=== PATIENT | female | born 1980 | race Caucasian/White ===

== ENCOUNTER 2017-01-09 12:24 | Inpatient (IN) ==
--- NOTE | 2017-01-09 13:32 | Emergency Department Note ---
Disposition Clinical Impression: Suicidal ideation, Chronic schizophrenia Disposition: Admitted As Inpatient Condition: Good Forms: ED Satisfaction Letter Time of Disposition: 18:35 Psych HPI - General Chief Complaint: ED Psychiatric Symptoms Stated Complaint: Psychiatric Complaints/SI Time Seen by Provider: 01/09/17 13:08 Source: patient Mode of arrival: EMS Limitations: no limitations Nursing Notes Reviewed: Yes Vital Signs Reviewed: Yes - History of Present Illness HPI Narrative: Patient is a 36-year-old female with a history of schizophrenia and he is affective disorder who presents with chief complaint of suicidal ideation. Patient is with [facility] systems [facility] who is providing most of the history. States the patient's has had psychiatric issues in the past but over the last 2 days have been extremely agitated and very physical. She has been hearing increasing voices in her head that are telling her to kill herself. Patient has had prior suicidal overdose attempts and has been admitted to prior psychiatric facilities. [facility] after she apparently overdosed on insulin, unknown whether or not this was intentional or not. Patient currently denying any nausea, vomiting, fever or chills. No chest pain , difficulty breathing, abdominal pain, problems with urination or bowel movements. No homicidal ideation. Pt complaint: suicidal ideation, medical clearance request If medical clearance, reason: psychiatric condition Onset (ago): day(s) Duration: getting worse History of similar episodes: Yes Improves with: none Worsens with: none Alleged intoxication: No Associated Psychiatric Symptoms: suicidal ideation Associated symptoms: Reports: denies other symptoms. Denies: shortness of breath, nausea, vomiting Self harm or harm to others: admits thoughts of self harm - Related Data Allergies Allergy/AdvReac Type Severity Reaction Status Date / Time divalproex sodium Allergy See Verified 01/09/17 13:41 [From Depakote] Comments haloperidol [From Haldol] Allergy See Verified 01/09/17 13:41 Comments ibuprofen [From Motrin] Allergy See Verified 01/09/17 13:41 Comments dairy products Allergy See Uncoded 01/09/17 13:41 Comments All systems ED: reviewed and negative except as stated. Past Medical History - Past Medical History Attestation: Yes The following information was validated with the patient. Source: patient Medical history: Reports: diabetes, hyperlipidemia Psychiatric history: Reports: anxiety, bipolar, depression, schizophrenia - Social History Smoking Status: Never smoker Smokeless Tobacco Status: No Alcohol use: Reports: none Drug use: Reports: none Physical Exam CONSTITUTIONAL: Alert and oriented X3, well-nourished, well appearing, in no apparent distress HEAD: Normocephalic; atraumatic. EYES: PERRL, no scleral icterus. NOSE: The nose is normal in appearance without rhinorrhea RESP: Normal chest excursion with respiration; breath sounds clear and equal bilaterally; no wheezes, rhonchi, or rales CARD: Regular rhythm, without murmurs, rub or gallop ABD: Non-distended; non-tender, soft,without rigidity, rebound or guarding SKIN: Normal for age and race; warm and dry; no apparent lesions - General Limitations: no limitations General appearance: alert, in no apparent distress Course Course Narrative: Patient seen and examined. Hearing voices that are telling her to kill herself. We will medically clear and then talk with psychiatry. - Reevaluation(s) Reevaluation #1: Patient medically cleared for psychiatric evaluation. Time: 15:00 Reevaluation #2: Spoke with psychiatry, they will admit to 1A. Time: 18:35 Vital Signs Temperature 98.3 F 01/09/17 12:56 Pulse Rate 83 01/09/17 12:56 Respiratory Rate 16 01/09/17 12:56 Blood Pressure 125/73 01/09/17 12:56 O2 Sat by Pulse Oximetry 91 01/09/17 12:56 Temperature 98.3 F 01/09/17 12:56 Pulse Rate 85 01/09/17 18:35 Respiratory Rate 16 01/09/17 18:35 Blood Pressure 120/76 01/09/17 18:35 O2 Sat by Pulse Oximetry 96 01/09/17 18:35 Oxygen Delivery Oxygen Delivery Room Air Psych - Medical Records Medical records reviewed: Yes I reviewed the patient's medical records. - Lab Data Lab results reviewed: Yes I reviewed the patient's lab results. Result diagrams: 01/09/17 13:40 01/09/17 13:40 Lab Results 01/09/17 01/09/17 01/09/17 Range/Units 13:22 13:22 13:22 WBC (4.3-11.1) K/mcL RBC (3.82-4.97) M/mcL Hgb (11.5-15.4) g/dL Hct (35.3-44.9) % MCV (83.0-100.0) fL MCH (28.0-33.3) pg MCHC (31.6-35.5) g/dL RDW (11.5-14.5) % Plt Count (140-400) K/mcL MPV (9.4-12.4) fL Immature Gran % (0-4) % Seg Neutrophils % % Lymphocytes % % Monocytes % % Eosinophils % % Basophils % % Neutrophils # (1.6-8.9) K/mcL Lymphocytes # (0.6-4.6) K/mcL Monocytes # (0.0-1.3) K/mcL Eosinophils # (0.0-0.6) K/mcL Basophils # (0.0-0.2) K/mcL Sodium (136-145) mEq/L Potassium (3.5-4.5) mEq/L Chloride (98-109) mEq/L Carbon Dioxide (19-29) mEq/L BUN (7-20) mg/dL Creatinine (0.57-1.11) mg/dL Est GFR ( Amer) (> 60) Est GFR (Non-Af Amer) (> 60) BUN/Creatinine Ratio (6-26) Glucose (70-99) mg/dL Calculated Osmolality (280-300) Calcium (8.6-10.8) mg/dL Urine Color Yellow (Yellow) Urine Clarity Clear (Clear) Urine pH 7.0 (5.0-8.0) pH Units Ur Specific [place] 1.011 (1.010-1.025) Urine Protein Negative (Neg-Trace) mg/dL Urine Glucose (UA) Normal (Normal) mg/dL Urine Ketones Negative (Negative) mg/dL Urine Blood Trace H (Negative) Urine Nitrite Negative (Negative) Urine Bilirubin Negative (Negative) Urine Urobilinogen Normal (Normal) mg/dL Ur Leukocyte Esterase Negative (Negative) Urine Microscopic RBC 0-3 (0-3) per hpf Urine Microscopic WBC 5-15 H (0-3) per hpf Ur Squamous Epith Cells Many H (None-Few) per lpf Urine Bacteria Few (None-Few) per hpf Hyaline Casts None Seen (None-Few) per lpf Urine Test Negative (Negative) Salicylates (15-30) mg/dL Urine Opiates Screen Negative (Lkfqhp=677) ng/mL Acetaminophen (10-30) mcg/mL Ur Barbiturates Screen Negative (Chwmjt=705) ng/mL Ur Phencyclidine Scrn Negative (Cutoff=25) ng/mL Ur Amphetamines Screen Negative (Dnfakg=5341) ng/mL U Benzodiazepines Scrn Negative (Bfxefr=743) ng/mL Urine Cocaine Screen Negative (Cutoff= 300) ng/mL U Marijuana (THC) Screen Negative (Cutoff = 50) ng/mL Ethyl Alcohol (0-10) mg/dL 01/09/17 01/09/17 Range/Units 13:40 13:40 WBC 10.4 (4.3-11.1) K/mcL RBC 3.74 L (3.82-4.97) M/mcL Hgb 10.8 L (11.5-15.4) g/dL Hct 34.0 L (35.3-44.9) % MCV 90.9 (83.0-100.0) fL MCH 28.9 (28.0-33.3) pg MCHC 31.8 (31.6-35.5) g/dL RDW 15.9 H (11.5-14.5) % Plt Count 361 (140-400) K/mcL MPV 9.7 (9.4-12.4) fL Immature Gran % 0.6 (0-4) % Seg Neutrophils % 59.6 % Lymphocytes % 23.4 % Monocytes % 9.7 % Eosinophils % 6.0 % Basophils % 0.7 % Neutrophils # 6.2 (1.6-8.9) K/mcL Lymphocytes # 2.4 (0.6-4.6) K/mcL Monocytes # 1.0 (0.0-1.3) K/mcL Eosinophils # 0.6 (0.0-0.6) K/mcL Basophils # 0.1 (0.0-0.2) K/mcL Sodium 141 (136-145) mEq/L Potassium 5.2 H (3.5-4.5) mEq/L Chloride 113 H (98-109) mEq/L Carbon Dioxide 18 L (19-29) mEq/L BUN 12 (7-20) mg/dL Creatinine 0.81 (0.57-1.11) mg/dL Est GFR ( Amer) > 60 (> 60) Est GFR (Non-Af Amer) > 60 (> 60) BUN/Creatinine Ratio 15 (6-26) Glucose 112 H (70-99) mg/dL Calculated Osmolality 293 (280-300) Calcium 9.4 (8.6-10.8) mg/dL Urine Color (Yellow) Urine Clarity (Clear) Urine pH (5.0-8.0) pH Units Ur Specific [place] (1.010-1.025) Urine Protein (Neg-Trace) mg/dL Urine Glucose (UA) (Normal) mg/dL Urine Ketones (Negative) mg/dL Urine Blood (Negative) Urine Nitrite (Negative) Urine Bilirubin (Negative) Urine Urobilinogen (Normal) mg/dL Ur Leukocyte Esterase (Negative) Urine Microscopic RBC (0-3) per hpf Urine Microscopic WBC (0-3) per hpf Ur Squamous Epith Cells (None-Few) per lpf Urine Bacteria (None-Few) per hpf Hyaline Casts (None-Few) per lpf Urine Test (Negative) Salicylates < 5.0 L (15-30) mg/dL Urine Opiates Screen (Mivith=702) ng/mL Acetaminophen < 1.0 L (10-30) mcg/mL Ur Barbiturates Screen (Oyktfk=178) ng/mL Ur Phencyclidine Scrn (Cutoff=25) ng/mL Ur Amphetamines Screen (Asrvar=6069) ng/mL U Benzodiazepines Scrn (Yggfzv=955) ng/mL Urine Cocaine Screen (Cutoff= 300) ng/mL U Marijuana (THC) Screen (Cutoff = 50) ng/mL Ethyl Alcohol < 10 (0-10) mg/dL Psychiatric Medical Clearance - Medical Clearance Checklist Does the patient have a NEW psychiatric condition?: Yes Any abnormalities indicating possible medical illness?: No Any history of medical issues?: Yes Medical History: Suicidal ideation (Acute) Chronic schizophrenia (Acute) No Social History Section defined Any abnormal vital signs prior to transfer?: No Current Vitals: Last Vital Signs Temp 98.3 F 01/09/17 12:56 Pulse 85 01/09/17 18:35 Resp 16 01/09/17 18:35 BP 120/76 01/09/17 18:35 Pulse Ox 96 01/09/17 18:35 Is the patient intoxicated or cognitively impaired?: No Psychiatric Lab Panel: Drug Levels and Toxicity 11/06/17 11/06/17 13:22 13:40 Urine Opiates Screen Negative Acetaminophen < 1.0 L Ur Barbiturates Screen Negative Ur Phencyclidine Scrn Negative Ur Amphetamines Screen Negative U Benzodiazepines Scrn Negative Urine Cocaine Screen Negative U Marijuana (THC) Screen Negative Ethyl Alcohol < 10 Any abnormalities on the physical exam?: No Any abnormal labs?: No Abnormal Labs: Abnormal lab results RBC 3.74 M/mcL (3.82-4.97) L 01/09/17 13:40 Hgb 10.8 g/dL (11.5-15.4) L 01/09/17 13:40 Hct 34.0 % (35.3-44.9) L 01/09/17 13:40 RDW 15.9 % (11.5-14.5) H 01/09/17 13:40 Potassium 5.2 mEq/L (3.5-4.5) H 01/09/17 13:40 Chloride 113 mEq/L (98-109) H 01/09/17 13:40 Carbon Dioxide 18 mEq/L (19-29) L 01/09/17 13:40 Glucose 112 mg/dL (70-99) H 01/09/17 13:40 Urine Blood Trace (Negative) H 01/09/17 13:22 Urine Microscopic WBC 5-15 per hpf (0-3) H 01/09/17 13:22 Ur Squamous Epith Cells Many per lpf (None-Few) H 01/09/17 13:22 Salicylates < 5.0 mg/dL (15-30) L 01/09/17 13:40 Acetaminophen < 1.0 mcg/mL (10-30) L 01/09/17 13:40 Does the patient require durable medical equiptment?: No Is the patient ambulatory?: Yes Is the patient a fall risk?: No Has the patient been medically cleared?: Yes Any acute medical condition require Tx prior to transfer?: No Attestation Statement - Attestation Attestation: I, Misael Connell DO, examined this patient [id number] and my medical decision-making was reviewed with Dr. Deisy Hill, Resident Physician. I agree with the documented findings, disposition and treatment plan as described except to the extent set forth below. Please see my progress notes for details. 36-year-old female sent to our facility for psychiatric evaluation. She is having worsening of her schizophrenia bipolar. Does describe some suicidal ideation at this point. The facility that she sustained currently he was concerned and wanted to have her evaluated for possible state placement. The psychiatric team's consult recommended coming to the emergency room for evaluation. Patient is currently denying any other symptoms. Psychiatric evaluation be completed. No new medical issues noted. Disposition be determined once workup is completed and psychiatric team is evaluating. See detailed documentation of physical exam, medical intervention, medical decision- making and disposition physician's note [id number] Patient will be accepted to the psychiatric team for evaluation.
[2017-01-09 13:35] LABS: Bilirubin,Urine Negative (Negative); Blood,Urine Trace (Negative); Clarity,Urine Clear (Clear); Color,Urine Yellow (Yellow); Glucose,Urine (UA) Normal (Normal); Ketones,Urine Negative (Negative); Leukocyte Esterase,Urine Negative (Negative); Nitrite,Urine Negative (Negative); Protein,Urine Negative (Neg-Trace); Specific Gravity,Urine 1.011 (1.010-1.025); Urobilinogen,Urine Normal (Normal)
[2017-01-09 13:37] LABS: Bacteria,Urine Few per hpf (None-Few); Hyaline Casts,Urine None Seen per lpf (None-Few); Squamous Epithelial Cell,Urine Many per lpf (None-Few)
[2017-01-09 13:40] LABS: Amphetamine Screen,Urine Negative ng/mL (Cutoff=1000); Barbiturate Screen,Urine Negative ng/mL (Cutoff=200); Benzodiazepines Screen,Urine Negative ng/mL (Cutoff=200); Cannabinoid Screen,Urine Negative ng/mL (Cutoff = 50); Cocaine Screen,Urine Negative ng/mL (Cutoff= 300); Opiate Screen,Urine Negative ng/mL (Cutoff=300); Phencyclidine Screen,Urine Negative ng/mL (Cutoff=25)
[2017-01-09 13:47] LABS: RBC,Urine 0-3 per hpf (0-3)
[2017-01-09 14:03] LABS: Basophils # 0.1 K/mcL (0.0-0.2); Basophils % 0.7 %; Eosinophils # 0.6 K/mcL (0.0-0.6); Hemoglobin 10.8 g/dL (11.5-15.4); Immature Granulocytes % 0.6 % (0-4); Lymphocytes # 2.4 K/mcL (0.6-4.6); Lymphocytes % 23.4 %; Mean Corpuscular HGB Conc 31.8 g/dL (31.6-35.5); Mean Corpuscular Hemoglobin 28.9 pg (28.0-33.3); Mean Corpuscular Volume 90.9 fL (83.0-100.0); Mean Platelet Volume 9.7 fL (9.4-12.4); Monocytes % 9.7 %; Neutrophils # 6.2 K/mcL (1.6-8.9); Platelet Count 361 K/mcL (140-400); Red Blood Count 3.74 M/mcL (3.82-4.97); Red Cell Distribution Width 15.9 % (11.5-14.5); Segmented Neutrophils % 59.6 %
[2017-01-09 14:18] LABS: BUN/Creatinine Ratio 15 (6-26); Blood Urea Nitrogen 12 mg/dL (7-20); Calcium 9.4 mg/dL (8.6-10.8); Carbon Dioxide 18 mEq/L (19-29); Chloride 113 mEq/L (98-109); Glucose 112 mg/dL (70-99); Osmolality,Calculated 293 (280-300); Potassium 5.2 mEq/L (3.5-4.5); Sodium 141 mEq/L (136-145); eGFR For African Americans > 60 (> 60); eGFR For Non-African Americans > 60 (> 60)
[2017-01-09 14:20] LABS: Acetaminophen < 1.0 mcg/mL (10-30); Ethanol < 10 mg/dL (0-10); Salicylate < 5.0 mg/dL (15-30)
[2017-01-09] MEDS: Nicotine 2 MG GUM BC PRN ×2 (21:08→23:39)
[2017-01-09] MEDS ORDERED: *HR* LORazepam 2 MG/ML VIAL IM PRN (21:16)
[2017-01-09] MEDS ORDERED: MOM Conc 10 ML UD.LIQ PO PRN (21:16)
[2017-01-09] MEDS ORDERED: *HR* LORazepam 1 MG TABLET PO PRN (21:16)
[2017-01-09] MEDS ORDERED: Mag Hydrox/Al Hydrox/Simeth 30 ML UDC PO PRN (21:16)
[2017-01-09] MEDS ORDERED: hydrOXYzine pamoate 25 MG CAPSULE PO PRN (21:23)
[2017-01-09] MEDS ORDERED: Albuterol 2.5 MG/3 ML NEBULIZER IH PRN (21:23)
[2017-01-09] MEDS ORDERED: Ondansetron ODT 4 MG TAB.RAPDIS PO PRN (21:23)
[2017-01-09] MEDS ORDERED: *HR* HYDROcodone/Acet 5/325 mg TABLET PO PRN (21:23)
[2017-01-09] MEDS: traZODone 50 MG TABLET PO SCH (22:10)
[2017-01-09] MEDS: Ziprasidone 80 MG CAPSULE PO SCH (22:10)
[2017-01-09] MEDS: Lithium Carbonate 300 MG CAPSULE PO SCH (22:12)
[2017-01-09] MEDS: Insulin DETEMIR 100 UNIT/ML X5UNITS SQ SCH (22:12)
[2017-01-09] MEDS: Gabapentin 300 MG CAPSULE PO SCH (22:13)
[2017-01-09] MEDS: Ibuprofen 800 MG TABLET PO SCH (23:39)
[2017-01-10] MEDS: Loratadine 10 MG TABLET PO SCH (08:45)
[2017-01-10] MEDS: Ziprasidone 80 MG CAPSULE PO SCH ×2 (08:45→21:03)
[2017-01-10] MEDS: Sennosides 8.6 MG TABLET PO SCH (08:46)
[2017-01-10] MEDS: *HR* Metformin 500 MG TABLET PO SCH ×2 (08:46→21:04)
[2017-01-10] MEDS: Ibuprofen 800 MG TABLET PO SCH ×3 (08:46→23:01)
[2017-01-10] MEDS: Lithium Carbonate 300 MG CAPSULE PO SCH ×3 (08:46→21:03)
[2017-01-10] MEDS: Gabapentin 300 MG CAPSULE PO SCH ×3 (08:46→21:04)
[2017-01-10] MEDS: Fenofibrate 54 MG TABLET PO SCH (08:46)
[2017-01-10] MEDS: Nicotine 2 MG GUM BC PRN ×7 (08:47→23:22)
[2017-01-10] MEDS: Insulin LISPRO 300 UNITS/3 ML VIAL SQ SCH ×3 (09:02→16:52)
[2017-01-10] MEDS: Insulin DETEMIR 100 UNIT/ML X5UNITS SQ SCH ×2 (09:02→21:10)
[2017-01-10] MEDS: Fluticasone Propionate Nasal 50 MCG/SPRAY BOTTLE NS SCH (09:02)
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
[2017-01-10] MEDS: traZODone 50 MG TABLET PO SCH (21:04)
[2017-01-10] MEDS: FluocinoLONE Acet 0.025% CRM 15 GM TUBE TP SCH (21:09)
[2017-01-10] MEDS: [Breo Ellipta 100-25 Mcg IH SCH (21:14)
[2017-01-11] MEDS: Ibuprofen 800 MG TABLET PO SCH ×2 (08:22→15:18)
[2017-01-11] MEDS: Ziprasidone 80 MG CAPSULE PO SCH ×2 (08:23→20:39)
[2017-01-11] MEDS: Gabapentin 300 MG CAPSULE PO SCH ×3 (08:23→20:38)
[2017-01-11] MEDS: Sennosides 8.6 MG TABLET PO SCH (08:23)
[2017-01-11] MEDS: Lithium Carbonate 300 MG CAPSULE PO SCH ×3 (08:24→20:38)
[2017-01-11] MEDS: Loratadine 10 MG TABLET PO SCH (08:24)
[2017-01-11] MEDS: Fenofibrate 54 MG TABLET PO SCH (08:24)
[2017-01-11] MEDS: *HR* Metformin 500 MG TABLET PO SCH ×2 (08:25→20:38)
[2017-01-11] MEDS: FluocinoLONE Acet 0.025% CRM 15 GM TUBE TP SCH ×2 (08:25→20:59)
[2017-01-11] MEDS: Insulin DETEMIR 100 UNIT/ML X5UNITS SQ SCH ×2 (08:27→20:58)
[2017-01-11] MEDS: Fluticasone Propionate Nasal 50 MCG/SPRAY BOTTLE NS SCH (08:27)
[2017-01-11] MEDS: Nicotine 2 MG GUM BC PRN ×7 (08:43→22:47)
[2017-01-11] MEDS: Insulin LISPRO 300 UNITS/3 ML VIAL SQ SCH ×3 (10:01→16:52)
--- NOTE | 2017-01-11 10:54 | Psychiatry Progress Note ---
Date of Encounter: 01/11/17 Time of Encounter: 10:49 Subjective Interval history: Looks better today. Brighter. More alert. States she feels better. Reports AH are more manageable and SI has improved. Has AH and SI at baseline. Does not look psychotic. Has been behaviorally difficult for staff as client is loud and intrusive. Disruptive in groups which is challenging. However, she has not acted out at all. No prns have been needed. For June this is really good. Did not even require EMS to get to the hospital, an administrator social welfare from her senior living drove her. Will plan on sending her back to the senior living tomorrow. nutrition services worker has been trying to make discharge arrangements but has not received a return phone call yet. Review of Systems Constitutional: Denies: fever, chills, weakness, weight change Eyes: Denies: eye pain, vision change Ears, Nose, Throat: Denies: ear pain, throat pain, dental pain, hearing loss, congestion Cardiovascular: Denies: chest pain, palpitations, dyspnea on exertion Respiratory: Denies: cough, dyspnea, wheezes Gastrointestinal: Denies: abdominal pain, nausea, vomiting, diarrhea, constipation Musculoskeletal: Reports: joint pain, myalgia. Denies: joint swelling Neurological: Denies: headache, weakness, numbness, memory loss Objective: Exam Patient orientation: Yes Person, Yes Time, Yes Place Level of alertness: Alert Patient appearance: Appropriate Behavior: calm, cooperative Psychomotor activity: Normal Eye contact: Maintains Eye Contact Mood description: Euthymic/stable Affect description: congruent with mood, full range Speech pattern: Normal rate, Normal rhythm, Normal tone Speech volume: Normal Thought process: Goal Oriented Thought content: Yes Suicidal ideation, No Homicidal ideation, No Overt delusions Perceptual disturbances: Yes Auditory hallucinations Judgment: Limited Insight: Partial Results - Vital Signs Vital Signs: Temp Pulse Resp BP Pulse Ox 98 F 87 16 116/70 96 01/11/17 09:00 01/11/17 09:00 01/11/17 09:00 01/11/17 09:00 01/09/17 18:35 - Labs Labs: Laboratory Results - last 24 hr 01/10/17 01/10/17 01/10/17 11:09 16:08 20:40 POC Glucose 155 H 166 H 231 H 01/11/17 08:06 POC Glucose 196 H Assessment and Plan (1) Schizoaffective disorder Current visit: Yes Status: Acute Plan: Continue hospitalization, Close observation, Suicide Precautions per unit protocol, Encourage participation in unit milieu, Group Therapy, Monitor sleep, Monitor appetite Risks, benefits, side effects, alternatives discussed w/pt: Yes Patient agreeable to treatment: Yes Qualifiers: Schizoaffective disorder type: bipolar Qualified Code(s): F25.0 - Schizoaffective disorder, bipolar type Consult Discharge Plan - Plan Referrals: NONE,PCP [Primary Care Provider] -
[2017-01-11] MEDS: traZODone 50 MG TABLET PO SCH (20:39)
[2017-01-11] MEDS: [Breo Ellipta 100-25 Mcg IH SCH (20:49)
[2017-01-12] MEDS: Ibuprofen 800 MG TABLET PO SCH ×3 (01:24→14:26)
[2017-01-12] MEDS: Nicotine 2 MG GUM BC PRN ×4 (02:34→14:26)
[2017-01-12] MEDS: *HR* Metformin 500 MG TABLET PO SCH (08:38)
[2017-01-12] MEDS: Lithium Carbonate 300 MG CAPSULE PO SCH ×2 (08:38→14:25)
[2017-01-12] MEDS: Gabapentin 300 MG CAPSULE PO SCH ×2 (08:39→14:25)
[2017-01-12] MEDS: Fenofibrate 54 MG TABLET PO SCH (08:39)
[2017-01-12] MEDS: Ziprasidone 80 MG CAPSULE PO SCH (08:40)
[2017-01-12] MEDS: Sennosides 8.6 MG TABLET PO SCH (08:40)
[2017-01-12] MEDS: Insulin LISPRO 300 UNITS/3 ML VIAL SQ SCH ×3 (08:40→11:56)
[2017-01-12] MEDS: Loratadine 10 MG TABLET PO SCH (08:40)
[2017-01-12] MEDS: FluocinoLONE Acet 0.025% CRM 15 GM TUBE TP SCH (08:52)
[2017-01-12] MEDS: Fluticasone Propionate Nasal 50 MCG/SPRAY BOTTLE NS SCH (08:52)
[2017-01-12] MEDS: Insulin DETEMIR 100 UNIT/ML X5UNITS SQ SCH (08:52)
[2017-01-12 09:05] VITALS: BP 120/74
--- NOTE | 2017-01-12 12:57 | Discharge Summary ---
Date of Encounter: 01/12/17 Time of Encounter: 12:53 Diagnosis - Discharge Diagnosis (1) Schizoaffective disorder Status: Acute Qualifiers: Schizoaffective disorder type: bipolar Qualified Code(s): F25.0 - Schizoaffective disorder, bipolar type Medications - Discharge Medications Albuterol Neb [Proventil Neb] 2.5 mg IH Q4-6H PRN 01/09/17 [History] Albuterol Sulfate [Albuterol Inhaler] 2 puff IH Q4H PRN 01/09/17 [History] Atorvastatin Calcium [Lipitor] 80 mg PO HS 01/09/17 [History] Buspirone HCl [Buspar] 10 mg PO TID 01/09/17 [History] Dicyclomine [Bentyl] 10 mg PO TID 01/09/17 [History] Fenofibrate Nanocrystallized [Tricor] 145 mg PO QAM 01/09/17 [History] Fluticasone Propionate Nasal [Flonase] 50 mcg NS DAILY 01/09/17 [History] Fluticasone/Vilanterol [Breo Ellipta 100-25 Mcg INH] 1 each IH HS 01/09/17 [ History] Gabapentin [Neurontin] 300 mg PO TID 01/09/17 [History] HYDROcodone/Acet 5/325 mg [[place] 5-325 mg] 1 - 2 tab PO Q4-6H PRN 01/09/17 [ History] HydrOXYzine Pamoate [Vistaril] 50 mg PO Q6H PRN 01/09/17 [History] Ibuprofen [Motrin] 800 mg PO Q8HR 01/09/17 [History] Insulin ASPART [Novolog Flexpen] 10 unit SQ 1200 01/09/17 [History] Insulin ASPART [Novolog Flexpen] 25 unit SQ 0800,1700 01/09/17 [History] Insulin Glargine,Hum.rec.anlog [Lantus Solostar] 52 unit SQ QAM AND QHS [History] [place] Carbonate 300 mg PO TID 01/09/17 [History] Loratadine [Claritin] 10 mg PO QAM 01/09/17 [History] Losartan [Cozaar] 25 mg PO QAM 01/09/17 [History] Metformin HCl [Metformin HCl ER] 500 mg PO BID 01/09/17 [History] Montelukast [Singulair] 10 mg PO HS 01/09/17 [History] Omeprazole [PriLOSEC] 20 mg PO BIDAC 01/09/17 [History] Ondansetron HCl [Zofran] 4 mg PO Q6H PRN 01/09/17 [History] Quetiapine Fumarate [Seroquel Xr] 400 mg PO HS 01/09/17 [History] Sennosides [Senna] 17.2 mg PO QAM 01/09/17 [History] Trazodone HCl 150 mg PO HS 01/09/17 [History] Ziprasidone [Geodon] 80 mg PO BID 01/09/17 [History] FluocinoLONE Acet 0.025% CRM [Fluocinolone Acet 0.025% CRM] 1 appl TP BID tube 01/12/17 [Rx] Quetiapine Fumarate [Seroquel] 50 mg PO HS tablet 01/12/17 [Rx] 3 Allergy/AdvReac Type Severity Reaction Status Date / Time acetaminophen [From Percocet] Allergy See Verified 01/09/17 20:54 Comments divalproex sodium Allergy See Verified 01/09/17 13:41 [From Depakote] Comments haloperidol [From Haldol] Allergy See Verified 01/09/17 13:41 Comments Oxycodone [From Percocet] Allergy See Verified 01/09/17 20:54 Comments adhesive tape AdvReac Redness of Verified 01/09/17 20:48 Skin sulfamethoxazole AdvReac See Verified 01/09/17 21:00 [From Bactrim] Comments trimethoprim [From Bactrim] AdvReac See Verified 01/09/17 21:00 Comments dairy products AdvReac See Uncoded 01/09/17 20:48 Comments Provider Date of admission: 01/09/17 19:02 Primary care physician: PCP NONE Discharging clinician: Bianca Morgan Assessment and Plan - Patient/Caregiver Discharge Instructions Activity: resume usual activities as tolerated Diet: diabetic diet - Follow up Plan Follow up with: [facility] [Other] (You will resume weekly visits on site at [facility] for outpatient psychiatric assessment and medication management services.) Functional capacity at discharge: independent ambulation Overall status at discharge: Stable Disposition: Transfer SNF Hospital Course Hospital course: Ms. Malone is a 36 year old female who was admitted secondary to SI and AH. A staff person from her [facility] drove her to the hospital. Alejandrina has a long history of inpatient hospitalizations. She can be quite challenging and often times she will act out However, she did not act out or get physical at any point during this admission. She was loud and intrusive at times but easily managed overall. No med changes were made except her AM dose of Seroquel was moved to HS because it was making her tired during the daytime. Alejandrina endorsed having SI and AH at baseline. However, at the time of discharge she was denying SI and there was no evidence of her responding to internal stimuli at any point during her hospitalization. This internal communications writer is familiar with Alejandrina from past hospitalizations at other institutions and she looked as good during this admission as she ever does. - Time Spent with Patient Total time spent providing and/or coordinating discharge services: Quality - Multiple Antipsychotics Patient discharged on 2 or more antipsychotic medications: Yes - Justification Documentation of: History 3 failed trials of monotherapy (Seroquel, Latuda, Geodon) Procedures - Procedures Procedures: Medication Management, Crisis Stabilization, Supportive Therapy, Group Therapy Mental Status Exam - Mental Status Exam Patient orientation: Yes Person, Yes Time, Yes Place Level of alertness: Alert Patient appearance: Obese Behavior: calm, cooperative Psychomotor activity: Normal Eye contact: Maintains Eye Contact Mood description: Euthymic/stable Affect description: congruent with mood, full range Speech pattern: Normal rate, Normal rhythm, Normal tone Speech Volume: Normal Thought process: Goal Oriented Thought Content: No Suicidal ideation, No Homicidal ideation, No Overt delusions Perceptual Disturbances: No Auditory hallucinations, No Visual hallucinations Judgment: Limited Insight: Partial
--- NOTE | 2017-01-12 13:25 | Physician Discharge Referral ---
ExtendedCare Referral Info Transfer To: [facility] Provider in Charge: Cathy Provider in Charge after Transfer: Other (ECF Physician) Institutional Level of Care: Skilled (PT/OT) - Diagnosis (1) Schizoaffective disorder Priority: Primary Status: Acute Expected Duration of Placement: Greater than 30 days Prognosis: Fair Aware of Diagnosis: Patient Aware of Prognosis: Patient - Transfer Medications Home Medications: Albuterol Neb [Proventil Neb] 2.5 mg IH Q4-6H PRN 01/09/17 [History] Albuterol Sulfate [Albuterol Inhaler] 2 puff IH Q4H PRN 01/09/17 [History] Atorvastatin Calcium [Lipitor] 80 mg PO HS 01/09/17 [History] Buspirone HCl [Buspar] 10 mg PO TID 01/09/17 [History] Dicyclomine [Bentyl] 10 mg PO TID 01/09/17 [History] Fenofibrate Nanocrystallized [Tricor] 145 mg PO QAM 01/09/17 [History] Fluticasone Propionate Nasal [Flonase] 50 mcg NS DAILY 01/09/17 [History] Fluticasone/Vilanterol [Breo Ellipta 100-25 Mcg INH] 1 each IH HS 01/09/17 [ History] Gabapentin [Neurontin] 300 mg PO TID 01/09/17 [History] HYDROcodone/Acet 5/325 mg [[place] 5-325 mg] 1 - 2 tab PO Q4-6H PRN 01/09/17 [ History] HydrOXYzine Pamoate [Vistaril] 50 mg PO Q6H PRN 01/09/17 [History] Ibuprofen [Motrin] 800 mg PO Q8HR 01/09/17 [History] Insulin ASPART [Novolog Flexpen] 10 unit SQ 1200 01/09/17 [History] Insulin ASPART [Novolog Flexpen] 25 unit SQ 0800,1700 01/09/17 [History] Insulin Glargine,Hum.rec.anlog [Lantus Solostar] 52 unit SQ QAM AND QHS [History] [place] Carbonate 300 mg PO TID 01/09/17 [History] Loratadine [Claritin] 10 mg PO QAM 01/09/17 [History] Losartan [Cozaar] 25 mg PO QAM 01/09/17 [History] Metformin HCl [Metformin HCl ER] 500 mg PO BID 01/09/17 [History] Montelukast [Singulair] 10 mg PO HS 01/09/17 [History] Omeprazole [PriLOSEC] 20 mg PO BIDAC 01/09/17 [History] Ondansetron HCl [Zofran] 4 mg PO Q6H PRN 01/09/17 [History] Quetiapine Fumarate [Seroquel Xr] 400 mg PO HS 01/09/17 [History] Sennosides [Senna] 17.2 mg PO QAM 01/09/17 [History] Trazodone HCl 150 mg PO HS 01/09/17 [History] Ziprasidone [Geodon] 80 mg PO BID 01/09/17 [History] FluocinoLONE Acet 0.025% CRM [Fluocinolone Acet 0.025% CRM] 1 appl TP BID tube 01/12/17 [Rx] Quetiapine Fumarate [Seroquel] 50 mg PO HS tablet 01/12/17 [Rx] Allergies/Adverse Reactions: 3 Allergy/AdvReac Type Severity Reaction Status Date / Time acetaminophen [From Percocet] Allergy See Verified 01/09/17 20:54 Comments divalproex sodium Allergy See Verified 01/09/17 13:41 [From Depakote] Comments haloperidol [From Haldol] Allergy See Verified 01/09/17 13:41 Comments Oxycodone [From Percocet] Allergy See Verified 01/09/17 20:54 Comments adhesive tape AdvReac Redness of Verified 01/09/17 20:48 Skin sulfamethoxazole AdvReac See Verified 01/09/17 21:00 [From Bactrim] Comments trimethoprim [From Bactrim] AdvReac See Verified 01/09/17 21:00 Comments dairy products AdvReac See Uncoded 01/09/17 20:48 Comments - Respiratory Orders None Smoking Cessation: Smoking cessation has been advised. For more information, call the [place] Tobacco Quit Line at 7-835-WJUV-NOW. - Advance Directives Power of Manager Medicare: Yes (Guardian) Code Status: Full Code - Mobility Orders Ambulate - Rehabiliation Orders Rehab Potential: Fair Rehab Orders: Evaluation for Physical Therapy, Evaluation for Occupational Therapy - Diet Orders No Concentrated Sweets (Diabetic Diet) CERTIFICATION: I certify that the transfer of the above named patient to an Extended Care Facility is necessary for the continuing treatment of the diagnosis listed. The above information is true and accurate reflection of patient's current condition. Confidential - Redisclosure prohibited without a patient's written consent.
== END 2017-01-12 14:32 | DRG 750 ==
LOC: EMEROO 12:24 → 1ANU 19:02
PROVIDERS: ADMIT Psychiatry & Neurology Psychiatry; ATTEND Psychiatry & Neurology Psychiatry